=== PATIENT | female | born 1975 | race Caucasian/White ===

== ENCOUNTER → 2016-04-28 | Outpatient (CLI) | payer BC ==
[~2016-04-28] MED LIST: ALDACTONE25 M1 PO; ASPIRIN81 M1 PO; ATORVASTATIN CA10 M1 PO; AUGMENTIN 875875 MG PO; BACTRIM 400 MG-1 TAB PO; BUPROPION75 MG PO; CIPROFLOXACIN500 MG PO; CYMBALTA30 M1 PO; DAYPRO600 M1 PO; DIFLUCAN150 MG PO; FLONASE 0.05% 121 EA NAS; LEVOTHROID0.1 MG PO; LEVOTHYROXINE0.15 MG PO; MOTRIN600 MG PO; NIACIN; NORCO 325 MG-51 TAB PO; PREVIFEM 35 MCG1 TA1 PO; PRILOSEC20 M1 PO; PRILOSEC20 MG PO; PYRIDIUM200 MG PO; ROBAXIN750 MG PO; SINGULAIR10 MG PO; VICODIN 5/500 505 MG PO; VITAMIN D1000 IU PO; WELLBUTRIN SR200 MG; WELLBUTRIN XL150 MG PO; WELLBUTRIN XL300 MG PO; ZANTAC150 MG PO
== END ==
LOC: US 16:36
DX: R10.9 Unspecified abdominal pain (principal); R10.2 Pelvic and perineal pain

== ENCOUNTER → 2016-06-20 | Outpatient (CLI) | payer BC ==
--- NOTE | ~2016-06-20 | ST ---
[place], [place] EXERCISE STRESS TEST REPORT NAME: STONE KEMP REDWOOD LLCT #: [id number] UNIT #: [id number] ROOM: DOCTOR: RICH LAND MD BIRTHDATE: [birth year] DOS: 06/20/2016 The patient walked on the Jose Eduardo protocol, duration of 4 minutes. Heart rate is 168, which is 94% of predicted heart rate. Procedure terminated on completion of protocol. Baseline cardiogram sinus rhythm with nonspecific ST-T changes. With exercise, the patient had no chest discomfort. No dysrhythmia. Blood pressure and heart rate response was normal. No new EKG changes suggestion of myocardial ischemia. Somewhat limited exercise capacity. FINAL IMPRESSION: No EKG changes with exercise. No chest pain with exercise. No dysrhythmia with exercise. Blood pressure and heart rate responses were normal. Nuclear images will be reported separately. This is a normal exercise stress test without any evidence of ischemia. RICH LAND MD CM:STRESS:EXERCISE STRESS TEST REPORT [id number] CASSIE LAND MD
== END ==
LOC: CARD 02:37
DX: Z01.818 Encounter for other preprocedural examination (principal); E11.9 Type 2 diabetes mellitus without complications; R01.1 Cardiac murmur, unspecified; Z90.710 Acquired absence of both cervix and uterus

== ENCOUNTER → 2018-10-21 | Day surgery (SDC) | payer OTHER ==
[~2018-10-21] VITALS: Ht 152.4 cm; Wt 122.5 kg
[~2018-10-21] MED LIST changes: +FARXIGA10 M1 PO; +METFORMIN XR500 MG PO; +TOPAMAX25 M3 PO; +VITAMIN D-32000 UNI1 PO; +ZOCOR10 MG PO; +ZOLOFT100 MG PO
[2018-10-21 11:05] VITALS: BP 120/78
[2018-10-21 14:51] VITALS: BP 105/64
[2018-10-21 15:06] VITALS: BP 105/60
[2018-10-21 15:21] VITALS: BP 105/69
[2018-10-30 16:11] LABS: ANAEROBE RESULT 1 Bacteroides vulgatus (.)
== END ==
LOC: SDC 10-18 15:30
DX: K52.9 Noninfective gastroenteritis and colitis, unspecified (principal); K29.70 Gastritis, unspecified, without bleeding; K21.9 Gastro-esophageal reflux disease without esophagitis; K64.8 Other hemorrhoids; E03.9 Hypothyroidism, unspecified; F32.9 Major depressive disorder, single episode, unspecified; F41.9 Anxiety disorder, unspecified; E11.9 Type 2 diabetes mellitus without complications; E66.01 Morbid (severe) obesity due to excess calories; Z68.43 Body mass index [BMI] 50.0-59.9, adult; Z98.51 Tubal ligation status; Z98.890 Other specified postprocedural states; Z88.8 Allergy status to other drugs, medicaments and biological substances; Z79.899 Other long term (current) drug therapy; Z90.49 Acquired absence of other specified parts of digestive tract; Z86.73 Personal history of transient ischemic attack (TIA), and cerebral infarction without residual deficits; Z82.49 Family history of ischemic heart disease and other diseases of the circulatory system; Z84.89 Family history of other specified conditions

== ENCOUNTER → 2020-02-12 | Outpatient (CLI) | payer OTHER | END | disposition home or self-care (01) | LOC: LAB 12:41 → US 13:30 | PROVIDERS: ATTEND Nurse Practitioner Women's Health | DX: N63.20 Unspecified lump in the left breast, unspecified quadrant (principal); N64.52 Nipple discharge ==

== ENCOUNTER 2020-08-02 10:59 | Inpatient (IN) | payer OTHER ==
[~2020-08-02] VITALS: Ht 152.4 cm; Wt 131.5 kg
[2020-08-02] VITALS (9 sets, daily range): BP systolic 115–150; BP diastolic 66–76
[~2020-08-02 10:59] MED LIST changes: -ZOLOFT100 MG PO
[2020-08-02 11:41] LABS: BILIRUBIN Negative (Negative); BLOOD Negative (Negative); CLARITY Clear (Clear); COLOR Yellow (Yellow); GLUCOSE 3+ (Negative); KETONE Negative (Negative); LEUKO ESTERASE Negative (Negative); NITRITE Negative (Negative); UROBILINOGEN 0.2 E.U./dl (0.0-1.0)
[2020-08-02 11:50] LABS: BACTERIA 2+; EPITHELIAL CELLS 21-30
[2020-08-02 11:52] LABS: BASO # 0.1 10*3/uL (0.0-0.1); EOS # 0.2 10*3/uL (0.0-0.4); EOS % 2.3 % (1.0-4.0); HEMATOCRIT 45.3 % (37.0-47.0); LYMPH # 1.6 10*3/uL (1.3-4.4); LYMPH % 21.9 % (27.0-41.0); MEAN CORPUSCULAR HGB 26.6 pg (27.0-31.0); MEAN CORPUSCULAR HGB CONC 31.3 g/dl (33.0-37.0); MEAN PLATELET VOLUME 8.5 fl (9.6-12.3); MONO # 0.4 10*3/uL (0.1-1.0); MONO % 5.6 % (3.0-9.0); NEUT % 68.8 % (47.0-73.0); PLATELET COUNT AUTOMATED 374 10*3/uL (130-400); RED BLOOD COUNT 5.33 10*6/uL (4.10-5.10); WHITE BLOOD COUNT 7.3 10*3/uL (4.8-10.8)
[2020-08-02 12:02] LABS: ACT PARTIAL THROMBO TIME 26.7 SECONDS (20.0-32.1)
[2020-08-02 12:07] LABS: ALBUMIN 3.5 gm/dl (3.1-4.5); ALKALINE PHOSPHATASE 81 U/L (45-117); BUN 13 mg/dl (7-24); CHLORIDE 108 mmol/L (98-107); CREATININE 1.01 mg/dL (0.55-1.02); LIPASE 93 U/L (73-393); SGOT/AST 13 IU/L (3-35); SGPT/ALT 29 U/L (12-78); SODIUM 137 mmol/L (136-145); TOTAL PROTEIN 8.1 gm/dL (6.4-8.2)
[2020-08-02 12:08] LABS: BETA-HCG, QUANT < 1.0 mIU/mL (1-3); TROPONIN I < 0.015 ng/ml (<0.045)
[2020-08-02] MEDS ORDERED: WELLBUTRIN XL300 MG PO (17:50)
[2020-08-02] MEDS ORDERED: TRULICITY0.75 MG/0. SC (17:52)
[2020-08-03] VITALS: BP 99/56
[2020-08-03 06:44] LABS: BASO % 0.2 % (0.0-1.0); HEMATOCRIT 42.3 % (37.0-47.0); LYMPH # 1.2 10*3/uL (1.3-4.4); LYMPH % 11.3 % (27.0-41.0); MEAN CELL VOLUME 87.2 fl (81.0-99.0); MEAN PLATELET VOLUME 8.6 fl (9.6-12.3); MONO # 0.4 10*3/uL (0.1-1.0); MONO % 3.4 % (3.0-9.0); NEUT # 8.9 10*3/uL (2.3-7.9); NEUT % 84.6 % (47.0-73.0); PLATELET COUNT AUTOMATED 357 10*3/uL (130-400); RED BLOOD COUNT 4.85 10*6/uL (4.10-5.10); RED CELL DISTRI WIDTH 14.7 % (0-14.5); WHITE BLOOD COUNT 10.6 10*3/uL (4.8-10.8)
[2020-08-03 06:58] LABS: ALBUMIN 3.1 gm/dl (3.1-4.5); ALKALINE PHOSPHATASE 73 U/L (45-117); BUN 13 mg/dl (7-24); CHLORIDE 106 mmol/L (98-107); CREATININE 0.86 mg/dL (0.55-1.02); POTASSIUM 4.1 mmol/L (3.5-5.1); SGOT/AST 13 IU/L (3-35); SGPT/ALT 26 U/L (12-78); SODIUM 138 mmol/L (136-145); TOTAL PROTEIN 7.4 gm/dL (6.4-8.2)
[2020-08-03 08:08] VITALS: BP 114/39
[2020-08-03] MEDS ORDERED: ZOFRAN4 MG PO (09:35)
[2020-08-03] MEDS ORDERED: COLACE100 MG PO (09:35)
[2020-08-03] MEDS ORDERED: PERCOCET 5-3251 EACH PO (09:44)
[2020-08-03 12:12] VITALS: BP 117/67
[2020-08-03] MEDS ORDERED: ZOLOFT100 MG PO (12:58)
== END 2020-08-03 14:30 | disposition home or self-care (01) | DRG 342 ==
LOC: ED 10:59 → EDHOLD 14:30 → 5E 14:30 → EDHOLD 14:30 → 5E 16:23
PROVIDERS: Family Medicine; ADMIT Student in an Organized Health Care Education/Training Program; ATTEND Student in an Organized Health Care Education/Training Program
PROC: 0DTJ4ZZ Resection of Appendix, Percutaneous Endoscopic Approach (ICD-10-PCS; principal; 2020-08-02)
DX: K35.80 Unspecified acute appendicitis (principal); Z68.43 Body mass index [BMI] 50.0-59.9, adult; E87.8 Other disorders of electrolyte and fluid balance, not elsewhere classified; E83.41 Hypermagnesemia; K21.9 Gastro-esophageal reflux disease without esophagitis; E66.01 Morbid (severe) obesity due to excess calories; G56.00 Carpal tunnel syndrome, unspecified upper limb; E11.22 Type 2 diabetes mellitus with diabetic chronic kidney disease; E03.9 Hypothyroidism, unspecified; R79.82 Elevated C-reactive protein (CRP); F41.9 Anxiety disorder, unspecified; Z90.721 Acquired absence of ovaries, unilateral; Z90.49 Acquired absence of other specified parts of digestive tract; Z88.2 Allergy status to sulfonamides; Z88.8 Allergy status to other drugs, medicaments and biological substances; Z82.49 Family history of ischemic heart disease and other diseases of the circulatory system

== ENCOUNTER → 2020-11-17 | Outpatient (CLI) | payer OTHER ==
[~2020-11-17] MED LIST changes: +COLACE100 MG PO; +PERCOCET 5-3251 EACH PO; +TRULICITY0.75 MG/0. SC; +ZOFRAN4 MG PO; +ZOLOFT100 MG PO
[2020-11-17 10:48] LABS: ALBUMIN 3.6 gm/dl (3.1-4.5); ALKALINE PHOSPHATASE 86 U/L (45-117); BUN 15 mg/dl (7-24); CHLORIDE 106 mmol/L (98-107); CHOLESTEROL 208 mg/dL (<200); CREATININE 0.92 mg/dL (0.55-1.02); LDL CHOLESTEROL 130 mg/dL (9-159); SGOT/AST 22 IU/L (3-35); SGPT/ALT 44 U/L (12-78); SODIUM 136 mmol/L (136-145); TOTAL PROTEIN 8.4 gm/dL (6.4-8.2); TRIGLYCERIDES 98 mg/dl (<150)
[2020-11-18 13:06] LABS: MICRO ALBUMIN/CRE RATIO <3 (0-29)
[2020-11-22 13:06] LABS: TESTOSTERONE FREE, (DIRECT) 5.5 pg/mL (0.0-4.2)
== END | disposition home or self-care (01) ==
LOC: LAB 08:31 → MAMMO 09:00
PROVIDERS: ATTEND Nurse Practitioner Women's Health
DX: R92.2 Inconclusive mammogram (principal)

== ENCOUNTER 2020-11-27 14:01 | Emergency (ER) | payer OTHER ==
[~2020-11-27] VITALS: Wt 128.8 kg
== END 2020-11-27 17:54 | disposition home or self-care (01) ==
LOC: ED 14:01
DX: S62.111A Displaced fracture of triquetrum [cuneiform] bone, right wrist, initial encounter for closed fracture (principal); Z88.8 Allergy status to other drugs, medicaments and biological substances; Z88.1 Allergy status to other antibiotic agents; Z79.899 Other long term (current) drug therapy; W18.39XA Other fall on same level, initial encounter; Y93.89 Activity, other specified; Y92.89 Other specified places as the place of occurrence of the external cause; Y99.8 Other external cause status

== ENCOUNTER → 2021-03-02 | Outpatient (CLI) | payer OTHER | END | disposition home or self-care (01) | LOC: LAB 00:35 → ORTHO 16:15 | PROVIDERS: ATTEND Orthopaedic Surgery | DX: M17.0 Bilateral primary osteoarthritis of knee (principal) ==

== ENCOUNTER → 2021-12-23 | Outpatient (CLI) | payer OTHER ==
[2021-12-23 09:32] LABS: HEMATOCRIT 46.7 % (37.0-47.0)
== END | disposition home or self-care (01) ==
LOC: LAB 08:39
PROVIDERS: ATTEND Physical Medicine & Rehabilitation Sports Medicine
DX: D50.9 Iron deficiency anemia, unspecified (principal); D69.6 Thrombocytopenia, unspecified

== ENCOUNTER → 2022-09-11 | Outpatient (CLI) | payer OTHER | END | disposition home or self-care (01) | LOC: US 08-14 02:07 | PROVIDERS: ATTEND Nurse Practitioner Family | DX: E03.9 Hypothyroidism, unspecified (principal) ==

== ENCOUNTER → 2023-08-22 | Outpatient (CLI) | payer OTHER | LOC: MAMMO 07-12 08:30 | PROVIDERS: ATTEND Nurse Practitioner Women's Health | DX: Z12.31 Encounter for screening mammogram for malignant neoplasm of breast (principal) ==

== ENCOUNTER → 2024-02-09 | Outpatient (CLI) | payer OTHER | END | disposition home or self-care (01) | LOC: US 08:07 | PROVIDERS: ATTEND Internal Medicine Endocrinology, Diabetes & Metabolism | DX: R59.0 Localized enlarged lymph nodes (principal) ==

== ENCOUNTER → 2025-01-22 | Outpatient (CLI) | payer OTHER | END | disposition home or self-care (01) | LOC: CARD 00:31 | PROVIDERS: ATTEND Nurse Practitioner Family | DX: I34.0 Nonrheumatic mitral (valve) insufficiency (principal); I10 Essential (primary) hypertension; R01.1 Cardiac murmur, unspecified ==